=== PATIENT | female | born 2005 | race Caucasian/White ===

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

== ENCOUNTER 2024-02-04 21:53 | Emergency (ER) | payer OTHER, SELFPAY ==
[2024-02-04 22:10] VITALS: BP 125/80; PULSE 72; RESP 18; TEMP 36.7; O2SAT 99; BMI 21.0
--- NOTE | 2024-02-04 22:24 | ED_ITS ---
HPI - General Adult General Chief complaint: Abdominal Pain Stated complaint: Lower R abdominal pain Time Seen by Provider: 02/04/24 22:23 History of Present Illness HPI narrative: Pt c/o cramping right lower quadrant abdominal pain that started around 0800. Hx UTIs. Hx ovarian cysts for pt's mother . Pt states she does not have normal periods and last period lasted three weeks. Pt states she stopped taking her control and period stopped. 18-year-old young woman presenting to the emergency department with concern of cramping pelvic pain. Just stopped her control after 3 weeks straight menses. Has always been irregular. Not reporting headache or lightheadedness. Pain began rather suddenly this morning. No dysuria frequency urgency. No hematuria. No fever. No constipation or diarrhea. No nausea. Related Data Home Medications ?Medication ?Instructions ?Recorded ?Confirmed escitalopram oxalate 10 mg tablet 10 mg PO DAILY 02/04/24 02/06/24 escitalopram oxalate 5 mg tablet 5 mg PO DAILY 02/04/24 02/06/24 Allergies Allergy/AdvReac Type Severity Reaction Status Date / Time No Known Drug Allergies Allergy Verified 02/04/24 22:15 Review of Systems Status of ROS: Reports: 6 or more systems reviewed and unremarkable except as noted in History and below [facility] Medical History No significant past medical history Surgical History No significant past surgical history Social History Smoking Status: Current some day smoker Do you use any of these nicotine containing products: Vaping Products Second hand tobacco smoke exposure: No How often do you have a drink containing alcohol: 2-4 times a month AUDIT-C Alcohol total score: 2 Non-prescribed substance use: marijuana (any form) Exam Narrative: Exam Narrative: Pleasant. Calm. NAD. Breathing easily. Heart in regular rate and rhythm. Right lower adnexal pain to palpation. Not at McBurney's. No flank pain. No masses. exam not done otherwise. Const: Vital Signs, click to edit/add: Vital Signs - 24 hr 02/04/24 22:10 Temperature 98.0 F Pulse Rate [Pulse Oximeter] 72 Respiratory Rate 18 Blood Pressure [Ri ght Upper Arm] 125/80 Pulse Oximetry 99 Oxygen Delivery Me thod Room Air Documenting provider has reviewed patient's vital signs: yes Course Vital Signs Vital signs: Initial Vital Signs Temperature 98.0 F 02/04/24 22:10 Temperature Source Temporal Artery Scan 02/04/24 22:10 Pulse Rate 72 02/04/24 22:10 Respiratory Rate 18 02/04/24 22:10 Blood Pressure 125/80 02/04/24 22:10 Blood Pressure Mean 95 02/04/24 22:10 Blood Pressure Position Sitting 02/04/24 22:10 Pulse Oximetry 99 02/04/24 22:10 Oxygen Delivery Method Room Air 02/04/24 22:10 Vital Signs Temperature 98.0 F 02/04/24 22:10 Pulse Rate 72 02/04/24 22:10 Respiratory Rate 18 02/04/24 22:10 Blood Pressure 125/80 02/04/24 22:10 Pulse Oximetry 99 02/04/24 22:10 Oxygen Delivery Method Room Air 02/04/24 22:10 Temperature 98.0 F 02/04/24 23:56 Pulse Rate 68 02/04/24 23:56 Respiratory Rate 18 02/04/24 23:56 Blood Pressure 119/74 02/04/24 23:56 Pulse Oximetry 99 02/04/24 23:53 Oxygen Delivery Method Room Air 02/04/24 23:53 Medical Decision Making MDM Narrative Medical decision making narrative: We do have tray casting machine operator is available at this time. Would evaluate for urinary tract infection or potential /ectopic as well. We discussed other potential diagnoses like appendicitis. Would also consider a mesenteric adenitis. Considering abruptness of onset more likely related to ovarian matter. Vascular disruption unlikely in this age. Does not appear to be r elated to any injury in her back or injury otherwise. She does not feel she needs anything for pain. I discussed findings with tray casting machine operator. Noting a 5 cm cyst on the right ovary with small fluid. Radiology over-read as below TECHNIQUE: Ultrasound pelvis transvaginal for better assessment or to better visualize the endometrium. Real-time sonographic images with spectral and color Doppler imaging of the ovaries were obtained. COMPARISON: None. FINDINGS: Uterus: 7.7 x 4.5 x 5.1 cm. Normal echotexture of the myometrium. No masses. Endometrium: Transvaginal imaging was performed to better evaluate the endometrium. Endometrial thickness measures 6 mm. No sign of endometrial mass or fluid. Right ovary measures 6.0 x 4.8 x 5.6 cm and left ovary measures 2.7 x 2.2 x 2.4 cm. There is a 5.2 x 4.4 x 5.0 cm simple appearing cyst in the right ovary. Normal arterial and venous blood flow is demonstrated in both ovaries. Cul-de-sac: No significant free fluid. IMPRESSION: Large right ovarian simple appearing cyst. Otherwise, unremarkable pelvic ultrasound. Discussed findings with Neeta. I think a leaking cyst is a very reasonable exp lanation for her pain and consistent with clinical story. Urinalysis absent of apparent infection and test is negative. See patient discharge plan for further discussion/plan Lab Data Lab results reviewed: Yes I reviewed the patient's lab results Labs: Lab Results 02/04/24 Range/Units 22:15 Urine Color Yellow (Yellow) Urine Appearance Clear (Clear) Urine pH 7.0 (5.0-8.5) Ur Specific [place] 1.020 (1.000-1.030) Urine Protein Negative (Negative) Urine Glucose (UA) Negative (Negative) Urine Ketones Negative (Negative) Urine Blood Negative (Negative) Urine Nitrite Negative (Negative) Urine Bilirubin Negative (Negative) Urine Urobilinogen 0.2 (0.2-1.0) Ur Leukocyte Esterase Negative (Negative) Urine RBC 0-2 (0-2) Urine WBC 0-2 (0-5) Ur Squamous Epith Cells None (None-Few) Urine Bacteria None (None) Urine HCG, Qual Negative (Negative) Discharge Plan Discharge Clinical Impression: Cyst of right ovary Patient Disposition: Home w/ Parent or Adult Condition: Stable Additional Instructions: As noted preliminary impression is a leaking 5 cm right ovarian cyst. I suspect that this is what is causing your pain. Stay well-hydrated. Can take up to 800 mg of ibuprofen or up to 1000 mg of acetaminophen per dose. These can be combined. Alternative to the ibuprofen might be up to 500 mg naproxen 2 times daily. I understand that you follow-up at the end of the week in primary care clinic. Otherwise I would follow-up sometime between 4-6 weeks for repeat ultrasound to verify resolution of this cyst. Can discuss this at this follow-up visit; maybe get this arranged. Be seen/return for marked increase in persistent pain, associated vomiting or fever. Prescriptions: No Action escitalopram oxalate 10 mg tablet 10 mg PO DAILY escitalopram oxalate 5 mg tablet 5 mg PO DAILY Follow Up/Referrals: Hayde Hilton PA-C [Primary Care Provider] - Stand Alone Forms: [employer] Info Instructions
--- NOTE | 2024-02-04 22:39 | CRLHL7_ITS ---
For Patients: As a result of the Century Cures Act, medical imaging exams and procedure reports are released immediately into your electronic medical record. You may view this report before your referring provider. If you have questions, please contact your health care provider. INDICATION: right adnexal pain. TECHNIQUE: Ultrasound pelvis transvaginal for better assessment or to better visualize the endometrium. Real-time sonographic images with spectral and color Doppler imaging of the ovaries were obtained. COMPARISON: None. FINDINGS: Uterus: 7.7 x 4.5 x 5.1 cm. Normal echotexture of the myometrium. No masses. Endometrium: Transvaginal imaging was performed to better evaluate the endometrium. Endometrial thickness measures 6 mm. No sign of endometrial mass or fluid. Right ovary measures 6.0 x 4.8 x 5.6 cm and left ovary measures 2.7 x 2.2 x 2.4 cm. There is a 5.2 x 4.4 x 5.0 cm simple appearing cyst in the right ovary. Normal arterial and venous blood flow is demonstrated in both ovaries. Cul-de-sac: No significant free fluid. IMPRESSION: Large right ovarian simple appearing cyst. Otherwise, unremarkable pelvic ultrasound. Dictated by Jorge Omalley MD @ 02/05/2024 12:57:36 AM (Electronically Signed)
[2024-02-04 22:55] LABS: Appearance Urine Clear (Clear); Bilirubin Urine Negative (Negative); Blood Urine Negative (Negative); Color Urine Yellow (Yellow); Glucose Urine Negative (Negative); Ketones Urine Negative (Negative); Leukocyte Esterase Urine Negative (Negative); Nitrite Urine Negative (Negative); Protein Urine Negative (Negative); Urobilinogen Urine 0.2 (0.2-1.0)
[2024-02-04 23:03] LABS: RBC Urine 0-2 (0-2); WBC Urine 0-2 (0-5)
[2024-02-04 23:04] LABS: Ur HCG Qualitative* Negative (Negative)
[2024-02-04 23:53] VITALS: BP 119/74; PULSE 68; RESP 18; TEMP 36.7; O2SAT 99
[2024-02-04 23:56] VITALS: BP 119/74; PULSE 68; RESP 18; TEMP 36.7
== END 2024-02-04 23:56 | disposition home or self-care (01) ==
PROVIDERS: Emergency Provider Family Medicine; PCP Student in an Organized Health Care Education/Training Program
DX: N83.201 Unspecified ovarian cyst, right side (principal)
CPT/HCPCS: 76830; 81001; 81025; 93976; 99283; 99284

== ENCOUNTER 2024-02-06 09:28 | Emergency (ER) | payer OTHER, SELFPAY ==
[2024-02-06 09:32] VITALS: BP 148/71; PULSE 69; RESP 14; TEMP 36.7; O2SAT 100; BMI 21.0
[2024-02-06 10:01] LABS: Appearance Urine Clear (Clear); Bilirubin Urine Negative (Negative); Blood Urine Negative (Negative); Color Urine Yellow (Yellow); Glucose Urine Negative (Negative); Ketones Urine Negative (Negative); Leukocyte Esterase Urine Negative (Negative); Nitrite Urine Negative (Negative); Protein Urine Negative (Negative); Specific Gravity Urine >= 1.030 (1.000-1.030); Urobilinogen Urine 0.2 (0.2-1.0)
[2024-02-06 10:19] LABS: Bacteria Urine Few; RBC Urine 0-2 (0-2); Squamous Epithelial Cell Urine Few (None-Few); WBC Urine 0-2 (0-5)
[2024-02-06 10:20] LABS: Amorphous Sediment Urine Moderate
--- NOTE | 2024-02-06 10:26 | ED.ABDPAIN ---
HPI - Abdominal Pain General Time Seen by Provider: 10:26 Date Seen: 02/06/24 Chief Complaint: Abdominal Pain Stated Complaint: Lower R abdominal pain Time Seen by Provider: 02/06/24 10:23 Source: patient and RN notes reviewed Mode of arrival: ambulatory Limitations: no limitations History of Present Illness HPI narrative: This 18-year-old female is ambulatory into the ED with concern of increasing right lower quadrant pain with a recently diagnosed ovarian cyst. FINDINGS: Uterus: 7.7 x 4.5 x 5.1 cm. Normal echotexture of the myometrium. No masses. Endometrium: Transvaginal imaging was performed to better evaluate the endometrium. Endometrial thickness measures 6 mm. No sign of endometrial mass or fluid. Right ovary measures 6.0 x 4.8 x 5.6 cm and left ovary measures 2.7 x 2.2 x 2.4 cm. There is a 5.2 x 4.4 x 5.0 cm simple appearing cyst in the right ovary. Normal arterial and venous blood flow is demonstrated in both ovaries. Cul-de-sac: No significant free fluid. IMPRESSION: Large right ovarian simple appearing cyst. Otherwise, unremarkable pelvic ultrasound. This ultrasound report was from yesterday. Patient has been taking ibuprofen, took 600 mg this morning around 7:00 a.m.. She feels like the pain is worsening in her right lower quadrant. She has no nausea vomiting, is eating, stooling normal. She does feel like she is needing to make herself burp more. She felt clammy and her heart racing this morning. Vitals were normal on arrival here. She has not had a temperature. She is not on any control, no IUD or Nexplanon. Urinalysis and urine test were negative yesterday. MD elicited complaint: abdominal pain Pertinent past history: other (5.2 x 4.4 x 5.0 cm right ovarian cyst) Related Data Patient : No Home Medications ?Medication ?Instructions ?Recorded ?Confirmed escitalopram oxalate 10 mg tablet 10 mg PO DAILY 02/04/24 02/06/24 escitalopram oxalate 5 mg tablet 5 mg PO DAILY 02/04/24 02/06/24 Previous Rx's ?Medication ?Instructions ?Recorded ketorolac 10 mg tablet 10 mg PO Q6H PRN pain #20 tabs 02/06/24 Allergies Allergy/AdvReac Type Severity Reaction Status Date / Time No Known Drug Allergies Allergy Verified 02/04/24 22:15 Review of Systems Status of ROS Reports: 6 or more systems reviewed and unremarkable except as noted in History and below [facility] Medical History No significant past medical history Surgical History No significant past surgical history Social History Smoking Status: Current some day smoker Do you use any of these nicotine containing products: Vaping Products Second hand tobacco smoke exposure: No How often do you have a drink containing alcohol: 2-4 times a month AUDIT-C Alcohol total score: 2 Non-prescribed substance use: marijuana (any form) Exam Const: Vital Signs, click to edit/add: Vital Signs - 24 hr 02/06/24 09:32 Temperature 98.1 F Pulse Rate [Pulse Oximeter] 69 Respiratory Rate 14 Blood Pressure [Ri ght Upper Arm] 148/71 H Pulse Oximetry 100 Oxygen Delivery Me thod Room Air This 18-year-old female is alert, interactive, no apparent distress. Ambulatory into the ED of her own accord. Sclera clear, conjugate gaze. Did speak in complete sentences. Skin is warm and dry, not diaphoretic, no rash. Lungs are clear anteriorly. CV regular rate and rhythm no murmur. Abdomen is flat, nondistended. She does have some localized guarding in her right lower quadrant confounding ability to feel any mass. She has no abdominal tenderness elsewhere, no masses organomegaly elsewhere. Bimanual exam deferred at this time as patient will be having an ultrasound and would prefer not to have this examination at this time. Documenting provider has reviewed patient's vital signs: yes Course Course ED Course: Did discuss torsion, possibility cyst is going or just painful at this size an inadequate pain control with outpatient meds. Will place an IV, recheck basic labs, give her 15 mg IV Toradol. Repeat ultrasound. Reevaluation(s) Time of Reevaluation #1: 12:21 Reevaluation #1: Have reviewed the ultrasound report, did provide them a copy. She does not have torsion, still has good blood flow. No concerning change with labs. She did feel the IV Toradol did help. Will switch her from ibuprofen to oral Toradol initially, will supplement with Tylenol. Did discuss narcotics but she is reluctant even take any medicines ever. Vital Signs Vital signs: Initial Vital Signs Temperature 98.1 F 02/06/24 09:32 Temperature Source Temporal Artery Scan 02/06/24 09:32 Pulse Rate 69 02/06/24 09:32 Pulse Rhythm Regular 02/06/24 09:32 Respiratory Rate 14 02/06/24 09:32 Blood Pressure 148/71 H 02/06/24 09:32 Blood Pressure Mean 96 02/06/24 09:32 Blood Pressure Position Sitting 02/06/24 09:32 Pulse Oximetry 100 02/06/24 09:32 Oxygen Delivery Method Room Air 02/06/24 09:32 Vital Signs Temperature 98.1 F 02/06/24 09:32 Pulse Rate 69 02/06/24 09:32 Respiratory Rate 14 02/06/24 09:32 Blood Pressure 148/71 H 02/06/24 09:32 Pulse Oximetry 100 02/06/24 09:32 Oxygen Delivery Method Room Air 02/06/24 09:32 Temperature 98.1 F 02/06/24 09:32 Pulse Rate 69 02/06/24 09:32 Respiratory Rate 14 02/06/24 09:32 Blood Pressure 148/71 H 02/06/24 09:32 Pulse Oximetry 100 02/06/24 09:32 Oxygen Delivery Method Room Air 02/06/24 09:32 Medications Administered Medications: Discontinued Medications Generic Name Dose Route Start Last Admin Trade Name Freq PRN Reason Stop Dose Admin Ketorolac Tromethamine 15 mg 02/06/24 10:31 02/06/24 10:45 Ketorolac 15 Mg/Ml Inj IVP 02/06/24 10:32 15 mg ONCE ONE Administration MDM - Abdominal Pain Lab Data Attestation: I reviewed the patient's lab results. Labs: Lab Results 02/06/24 02/06/24 Range/Units 09:36 10:45 WBC 3.69 L (4.50-11.00) K/uL RBC 4.31 (4.00-5.20) m/uL Hgb 12.9 (12.0-16.0) gm/dL Hct 38.1 (33.0-51.0) % MCV 88 (80-100) fL MCH 30 (26-34) pg MCHC 34 (32-36) gm/dL RDW Coeff of Corine 11.7 (11.5-15.5) % Plt Count 188 (140-440) K/uL Neut % (Auto) 49.3 (42.0-72.0) % Lymph % (Auto) 39.3 (20-44) % [place] % (Auto) 9.5 (0.0-11.0) % Eos % (Auto) 1.4 (0.0-7.0) % Baso % (Auto) 0.5 (0.0-3.0) % Neut # (Auto) 1.80 (1.7-7.0) K/uL Lymph # (Auto) 1.50 (0.90-2.90) K/uL [place] # (Auto) 0.40 (0.00-0.90) K/UL Eos # (Auto) 0.10 (0.00-0.50) K/uL Baso # (Auto) 0.00 (0.00-0.30) K/uL Abs Immat Gran (auto) 0.00 (0.00-0.30) K/uL Imm/Tot Granulo (auto) 0.0 % Lactate 0.7 (0.5-1.9) mmol/L Urine Color Yellow (Yellow) Urine Appearance Clear (Clear) Urine pH 6.0 (5.0-8.5) Ur Specific [place] >= 1.030 (1.000-1.030) Urine Protein Negative (Negative) Urine Glucose (UA) Negative (Negative) Urine Ketones Negative (Negative) Urine Blood Negative (Negative) Urine Nitrite Negative (Negative) Urine Bilirubin Negative (Negative) Urine Urobilinogen 0.2 (0.2-1.0) Ur Leukocyte Esterase Negative (Negative) Urine RBC 0-2 (0-2) Urine WBC 0-2 (0-5) Ur Squamous Epith Cells Few (None-Few) Amorphous Sediment Moderate A (None) Urine Bacteria Few A (None) Imaging Data US pelvis: Attestation: I have reviewed the pertinent imaging results. Radiologist's impression: Patient: TA BURNS Facility:?[facility] Patient ID:?[id number] Site Patient ID:?[id number]. Site :?[id number] Study:?US-Pelvis PELVIS TV-02/06/2024 11:32:50 AM Ordering Physician:Morenita Casper Final Report: INDICATION: Worsening pain with known cyst on right ovary. TECHNIQUE: Ultrasound pelvis transvaginal for better assessment or to better visualize the endometrium. Real-time sonographic images with spectral and color doppler imaging of the ovaries were obtained. COMPARISON: 02/04/2024. FINDINGS: Uterus measures 8.7 x 4.4 x 5.3 cm. No discrete uterine mass. Endometrial stripe measures 4 mm. No endometrial fluid evident. Right ovary is 6.3 x 5.6 x 6.4 cm. A simple appearing cyst measures 5.8 x 5 x 6.1 cm and previously measured 5.2 x 4.4 x 5 cm. Normal-appearing color Doppler flow is present in the right ovary. Left ovary is 3.4 x 1.7 x 2.2 cm and is within normal limits. Normal-appearing color Doppler flow in the left ovary. Small amount of pelvic free fluid is similar in appearance. IMPRESSION: 1. Simple appearing right ovarian cyst measuring up to 6.1 cm has slightly increased in size. Ultrasound follow-up in 8-12 weeks is recommended for further evaluation. 2. Small amount of pelvic free fluid is similar. Dictated by Yemi Ortega MD @ 02/06/2024 12:10:04 PM Dictated by: Yemi Ortega MD @ 02/06/2024 12:10:32 (Electronic Signature) Discharge Plan Discharge Clinical Impression: Cyst of right ovary Patient Disposition: Home, Self-Care Condition: Stable Instructions: Ovarian Cyst (ED) Additional Instructions: Start Toradol per prescription for pain for the next 5 days. After the Toradol, can go back to ibuprofen but do not use ibuprofen and Toradol together. Can supplement with Tylenol with both of these as needed for extra pain management, can take a 1000 mg up to 3 times a day. Need a follow-up pelvic ultrasound done in 6-8 weeks just to ensure resolution of the ovarian cyst, can schedule this through your primary clinic. Otherwise, if you have increasing pain, developed severe abdominal pain and have fever or vomiting with this, do need to be re-evaluated. Activity Level: Activity as Tolerated Discharge Diet: Regular Prescriptions: New ketorolac 10 mg tablet 10 mg PO Q6H PRN (Reason: pain) Qty: 20 0RF Rx Instructions: maximum total duration of 5 days from all oral, intranasal, or parenteral formulations No Action escitalopram oxalate 10 mg tablet 10 mg PO DAILY escitalopram oxalate 5 mg tablet 5 mg PO DAILY Follow Up/Referrals: Hayde Hilton PA-C [Primary Care Provider] - Stand Alone Forms: [facility] Info Inst[facility]
--- NOTE | 2024-02-06 10:43 | CRLHL7_ITS ---
For Patients: As a result of the Century Cures Act, medical imaging exams and procedure reports are released immediately into your electronic medical record. You may view this report before your referring provider. If you have questions, please contact your health care provider. INDICATION: Worsening pain with known cyst on right ovary. TECHNIQUE: Ultrasound pelvis transvaginal for better assessment or to better visualize the endometrium. Real-time sonographic images with spectral and color doppler imaging of the ovaries were obtained. COMPARISON: 02/04/2024. FINDINGS: Uterus measures 8.7 x 4.4 x 5.3 cm. No discrete uterine mass. Endometrial stripe measures 4 mm. No endometrial fluid evident. Right ovary is 6.3 x 5.6 x 6.4 cm. A simple appearing cyst measures 5.8 x 5 x 6.1 cm and previously measured 5.2 x 4.4 x 5 cm. Normal-appearing color Doppler flow is present in the right ovary. Left ovary is 3.4 x 1.7 x 2.2 cm and is within normal limits. Normal-appearing color Doppler flow in the left ovary. Small amount of pelvic free fluid is similar in appearance. IMPRESSION: 1. Simple appearing right ovarian cyst measuring up to 6.1 cm has slightly increased in size. Ultrasound follow-up in 8-12 weeks is recommended for further evaluation. 2. Small amount of pelvic free fluid is similar. Dictated by Yemi Ortega MD @ 02/06/2024 12:10:04 PM Dictated by: Yemi Ortega MD @ 02/06/2024 12:10:32 (Electronically Signed)
[2024-02-06] MEDS: KETOROLAC 15 MG/ML inj IVP (10:45)
[2024-02-06 10:50] LABS: Lactate* 0.7 mmol/L (0.5-1.9)
[2024-02-06 10:57] LABS: Basophils Percent Auto 0.5 % (0.0-3.0); Eosinophils Percent Auto 1.4 % (0.0-7.0); Hematocrit 38.1 % (33.0-51.0); Hemoglobin* 12.9 gm/dL (12.0-16.0); Lymphocytes Percent Auto 39.3 % (20-44); Mean Corpuscular HGB Conc 34 gm/dL (32-36); Mean Corpuscular Hemoglobin 30 pg (26-34); Mean Corpuscular Volume 88 fL (80-100); Monocytes Percent Auto 9.5 % (0.0-11.0); Neutrophils Percent Auto 49.3 % (42.0-72.0); Platelet Count* 188 K/uL (140-440); RDW Coefficient of Variation % 11.7 % (11.5-15.5); Red Blood Count 4.31 m/uL (4.00-5.20); White Blood Count* 3.69 K/uL (4.50-11.00)
[2024-02-06 11:08] LABS: Slide Review Reflex No
[2024-02-06 11:30] VITALS: PULSE 62; O2SAT 96
[2024-02-06 11:48] VITALS: BP 113/64; PULSE 56; RESP 14; O2SAT 100
[2024-02-06 12:02] VITALS: BP 115/70; PULSE 77; RESP 12; O2SAT 95
== END 2024-02-06 12:38 | disposition home or self-care (01) ==
PROVIDERS: Emergency Provider Family Medicine; PCP Student in an Organized Health Care Education/Training Program
DX: N83.201 Unspecified ovarian cyst, right side (principal)
CPT/HCPCS: 36415; 76830; 81001; 83605; 85025; 87086; 93976; 96374; 99284; J1885

== ENCOUNTER 2025-04-11 10:46 | Emergency (ER) | payer OTHER, SELFPAY ==
--- OUTSIDE RECORDS SUMMARY | 2025-04-11 10:48 | XMS_ITS | Clinical Summary ---
Author Organization [facility] Address [address] [place] [id number] Care Team Providers Care Registered Nurse Maternity Name Role Phone Hayde Hilton Primary Care Provider [phone] Allergies No known active allergies Medications escitalopram oxalate 20 mg tabletIndication s:Anxiety TAKE 1 TABLET(20 MG) BY MOUTH AT BEDTIME 90 Tablet 03/21/20 25 Active cholecalciferol (Vitamin D) 1,000 unit tablet 12/15/19 25 Active ferrous gluconate 324 mg (37 mg iron) tabletIndication s:Iron deficiency anemia, unspecified iron deficiency anemia type Take 1 Tablet by mouth once daily with a meal. 90 Tablet 04/06/20 25 Active escitalopram oxalate (LEXAPRO) 20 mg tabletIndication s:Anxiety Take 1 Tablet (20 mg) by mouth at bedtime. 90 Tablet 1 07/16/20 24 025 Discontinued clindamycin phos 1%-benzoyl perox 5% gelIndications:A cne, unspecified acne type Apply topically to affected area(s) two times daily. 50 g 3 08/02/20 24 025 Discontinued(* Med complete/Regim en complete/Level of care change) norgestimate-eth inyl estradiol, 0.25-35 mg-mcg, (Estarylla) 0.25-35 mg-mcg tabletIndication s:Evaluation regarding contraception options Take 1 Tablet by mouth once daily. 84 Tablet 1 09/02/20 24 025 Discontinued(* Med complete/Regim en complete/Level of care change) hydrocortisone 2.5 % rectal creamIndications :Hemorrhoids, external Apply topically to affected area(s) two times daily. 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 [place] heart rate speed up. Discuss low iron levels. B-12 and vitamin D. ) 04/05/2025 Travel 04/05/2025 Nurse Triage [facility] [address] [place] [address] Hayde Hilton PA Dizziness 03/20/2025 Refill [facility] [address] [place] [address] Tomeka Higgins PA Refill Request (Escitalopram Oxalate) 03/10/2025 1:35 PM CDT Office Visit [facility] [address] [place] [address] Hayde Hilton PA Concerns (Hemorrhoids. Red, and irritating. Slight bleeding. ) 03/10/2025 Travel from Last 3 Months Immunizations Immunization Administration Dates Next Due DTaP 06/05/2017, 7,04/22/2005,02/06,2004 DTaP-IPV (Kinrix) 04/25/2010 Hepatitis A (Peds) 06/09/2020 Hepatitis B (Peds) 04/22/2005,2004, 005 Hib Conjugate, Unspecified 09/27/2005,,02/06/2005,11/22 Inactivated Polio Vaccine 04/22/2005,02/06/2005, 2004 Influenza, IIV3 (Age >=3 years) 07/06/2014,08/04,2012 Influenza, IIV4 06/09/2020 MENINGOCOCCAL VACCINE 2 VIAL 2MO-55YO (MENVEO) 11/01/2020 MMR 04/25/2010,09/27/2005 Meningococcal Vaccine (Menactra) 06/05/2017 Pneumococcal conj 7-Valent (Prevnar 7) 0 09/27/2005,04/22/2005,02/06/2005,11/22 Tdap 06/05/2017 Varicella Vaccine 07/27/2010,04/25/2010 Family History Medical History Relation Name Comments ADD / ADHD Mother Relation Name Status Comments Father Alive Maternal Grandfather Alive Maternal Grandmother Alive Mother Alive Paternal Grandfather Paternal Grandmother Alive Social History Tobacco Use Types Packs/Day Years Used Date Smoking Tobacco: Never Passive Smoke Exposure: Yes Smokeless Tobacco: Never Tobacco Cessation:Counseling Given: Yes Alcohol Use Standard Drinks/Week Comments Yes 3 (1 standard drink = 0.6 oz pur e alcohol) PHQ-2 Answer Date Recorded PHQ-2 TOTAL SCORE 3 07/16/2024 Social Connections Answer Date Recorded Do you often feel lonely or isolated from those around you? 0 03/10/2025 Alcohol Use Answer Date Recorded How often do you have a drink containing alcohol ? 3 08/02/2024 How many drinks containing a lcohol do you have on a typical day when you are drinking? 1 08/02/2024 How often do you have five or more drinks on one occasion? 3 08/02/2024 Financial Resource Strain Answer Date R ecorded Difficulty of Paying Living Expenses 3 03/10/2025 Difficulty of Paying Living Expenses Not on file 03/10/2025 Food Insecurity Answer Date Recorded Do you worry your food will run out before you are able to buy more? 1 03/10/2025 Transportation Needs Answer Date Record ed Does lack of transportation keep you from medica l appointments? 1 03/10/2025 Does lack of transportation keep you from work, meetings or getting things that you need? 1 03/10/2025 Housing Stability Answer Date Recorded What is your housing situation today? 1 03/10/2025 Utilities Answer Date Recorded Do you have trouble paying f or utilities (for example, heat, electricity, water, phone)? 1 03/10/2025 Comments No Sex and Gender Information Value Date Recorded Sex Assigned at Not on file Legal Sex Female 11:55 AM LAY OUT MAKER Gender Identity Not on file Sexual Orientation Not on file Obstetrics History Para Term AB IAB SAB Ectopic Multiple Livin g Live Births 0 0 0 0 0 0 0 0 0 0 0 Last Filed Vital Signs Vital Sign Reading Time Taken Comments Blood Pressure 112/68 04/05/2025 2:31 PM CDT Pulse 79 04/05/2025 2:31 PM CDT Temperature 37.1 C (98.7 F) 10/07/2024 12:38 PM LAY OUT MAKER Respiratory Rate 16 10/07/2024 12:38 PM LAY OUT MAKER Oxygen Saturation 99% 04/05/2025 2:31 PM CDT Inhaled Oxygen Concentration - - Weight 66.2 kg (146 lb) 04/05/2025 2:31 PM CDT Height 166.8 cm (5' 5.67) 08/02/2024 3:24 PM CS T Body Mass Index - - Plan of Treatment Health Maintenance Due Date Last Done Comments COVID-19 vaccine series (#1) 2009 HIV for age 15-65 2019 HPV series for age 9-26 (1 - 3-dose series) 2019 Well Child Check for age 3-20 08/28/2022 08/28/2021, 06/09/2020 Hepatitis C screening for ag e 18-79 2022 Pneumococcal series for age 6-49 (1 of 2 - PCV) 2023 09/27/2005, 04/22/2005, 02/06/2005, Additional history exists Influenza Vaccine (#1) 2025 0, 07/06/2014, 08/04/2013, Additional history exists Depression screening for age 12+ 07/16/2025 07/16/2024, 12/25/2023, 08/27/2023, Additional history exists BMI (ht and wt on same day) for age 18+ 08/02/2025 08/02/2024, 08/05/2023, 04/30/2023, Additional history exists Chlamydia for age 16-24 08/02/2025 08/02/20 24, 08/08/2023, 08/05/2023, Additional history exists Tetanus booster 06/05/2027 06/05/2017 Hepatitis B series for 19+ Completed 04/22, 2004, 2004 Meningococcal series for age 11-21 Completed 2020, 06/05/2017 Procedures Procedure Name Priority Date/Time Associated Diagnosis Comments CBC WITH AUTO DIFFERENTIAL Routine 04/05/2025 3:28 PM CDT Iron deficiency anemia, unspecified iron deficiency anemia type Postural lightheadedness IRON PLUS IRON BINDING CAP Routine 04/05/2025 3:28 PM CDT Iron deficiency anemia, unspecified iron deficiency anemia type Postural lightheadedness FERRITIN Routine 04/05/2025 3:28 PM CDT Iron deficiency anemia, unspecified iron deficiency anemia type Postural lightheadedness VITAMIN D 25 (DEFICIENCY) Routine 04/05/2025 3:28 PM CDT Vitamin D deficiency Iron deficiency anemia, unspecified iron deficiency anemia type VITAMIN B12 Routine 04/05/2025 3:28 PM CDT Family history of B12 deficiency GC CHLAMYDIA TRACH PROBE Routine 08/02/2024 4:00 PM LAY OUT MAKER Screening examination for STI from Last 3 Months or Most Recently Relevant to Health Maintenance Results * VITAMIN D 25 (DEFICIENCY) (04/05/2025 3:28 PM CDT) VITAMIN D,25-OH,TOTAL,IA 53 30 - 100 ng/mL [facility] Comment: Vitamin D Status 25-OH Vitamin D: Deficiency: <20 ng/mL Insufficiency: 20 - 29 ng/mL Optimal: > or = 30 ng/mL For 25-OH Vitamin D testing on patients on D2-supplementation and patients for whom quantitation of D2 and D3 fractions is required, the [facility](TM) 25-OH VIT D, (D2,D3), LC/MS/MS is recommended: order code 70514 (patients >2yrs). See Note 1 Note 1 For additional information, please refer to http://education.GlobeIn/faq/LWR805 (This link is being provided for informational/ educational purposes only.) Blood BLOOD SPECIMEN / Unknown 04/05/2025 3:28 PM CDT 04/05/2025 3:28 PM CDT us Hayde ESPARZA SEND OUTS Final Res ult Performing Organization Address City/[facility]/ZIP Co de Phone Number [employer] [facility] [address] [place] [address], [place] [phone] [facility] [address] [place] [address] * (ABNORMAL) IRON PLUS IRON BINDING CAP (04/05/2025 3:28 PM CDT) Pathologist [facility] IRON, TOTAL 26(L) 40 - 190 mcg/dL [facility] IRON BINDING CAPACITY 404 250 - 450 mcg/dL (calc) [facility] % SATURATION 6(L) 16 - 45 % (calc) [facility] Blood BLOOD SPECIMEN / Unknown 04/05/2025 3:28 PM CDT 04/05/2025 3:28 PM CDT us Hayde ESPARZA CHEMISTRY Final Res ult Performing Organization Address [facility]/ZIP Co de Phone Number [employer] [facility] [address] [place] [address], [place] [phone] [facility] [address] [place] [address] * (ABNORMAL) CBC AND DIFFERENTIAL (04/05/2025 3:28 PM CDT) [facility] WHITE BLOOD CELL COUNT 5.4 3.8 - 10.8 Thousand/u L [facility] RED BLOOD CELL COUNT 4.67 3.80 - 5.10 Million/uL [facility] HEMOGLOBIN 12.7 11.7 - 15.5 g/dL [facility] HEMATOCRIT 40.9 35.0 - 45.0 % [facility] MCV 87.6 80.0 - 100.0 fL [facility] MCH 27.2 27.0 - 33.0 pg [facility] MCHC 31.1(L) 32.0 - 36.0 g/dL [facility] Comment: For adults, a slight decrease in the calculated MCHC value (in the range of 30 to 32 g/dL) is most likely not clinically significant; however, it should be interpreted with caution in correlation with other red cell parameters and the patient's clinical condition. RDW 13.4 11.0 - 15.0 % [facility] PLATELET COUNT 231 140 - 400 Thousand/u L [facility] MPV 10.7 7.5 - 12.5 fL [facility] ABSOLUTE NEUTROPHILS 3,143 1,500 - 7,800 cells/uL [facility] ABSOLUTE LYMPHOCYTES 1,598 850 - 3,900 cells/uL [facility] ABSOLUTE MONOCYTES 535 200 - 950 cells/uL [facility] ABSOLUTE EOSINOPHILS 92 15 - 500 cells/uL [facility] ABSOLUTE BASOPHILS 32 0 - 200 cells/uL [facility] NEUTROPHILS 58.2 % [facility] LYMPHOCYTES 29.6 % [facility] MONOCYTES 9.9 % [facility] EOSINOPHILS 1.7 % [facility] BASOPHILS 0.6 % [facility] Blood BLOOD SPECIMEN / Unknown 04/05/2025 3:28 PM CDT 04/05/2025 3:28 PM CDT us Hayde ESPARZA HEMATOLOGY Final Res ult Performing Organization Address City/[facility]/ZIP Co de Phone Number [facility] [address] [place] [phone], [facility] [address] [place] [address] * (ABNORMAL) FERRITIN (04/05/2025 3:28 PM CDT) Pathologist [facility] FERRITIN 7(L) 16 - 154 ng/mL [facility] Blood BLOOD SPECIMEN / Unknown 04/05/2025 3:28 PM CDT 04/05/2025 3:28 PM CDT us Hayde ESPARZA CHEMISTRY Final Res ult Performing Organization Address [facility] Co de Phone Number [facility] [address] [address], [facility] [address] [place] [address] * VITAMIN B12 (04/05/2025 3:28 PM CDT) Pathologist [facility] VITAMIN B12 377 200 - 1,100 pg/mL [facility] Comment: Please Note: Although the reference range for vitamin B12 is 200-1100 pg/mL, it has been reported that between 5 and 10% of patients with values between 200 and 400 pg/mL may experience neuropsychiatric and hematologic abnormalities due to occult B12 deficiency; less than 1% of patients with values above 400 pg/mL will have symptoms. Blood BLOOD SPECIMEN / Unknown 04/05/2025 3:28 PM CDT 04/05/2025 3:28 PM CDT us Hayde ESPARZA CHEMISTRY Final Res ult [facility] [address] [place] [address], [facility] [address] [place] [address] * GC CHLAMYDIA TRACH PROBE (08/02/2024 4:00 PM LAY OUT MAKER) CHLAMYDIA PROBE Negative 3:22 AM LAY OUT MAKER [facility] N GONORRHOEAE PROBE Negative 08/03/2024 3:22 AM LAY OUT MAKER [facility] Other URINE SPECIMEN / Unknown Non-Blood / Unknown 08/02/2024 4:00 PM LAY OUT MAKER 08/02/2024 4:00 PM LAY OUT MAKER Fidelina Berry MD MICROBIOLOGY Fin al Result [facility] [address] [place] [address], from Last 3 Months or Most Recently Relevant to Health Maintenance Insurance [id number] [place] [address] [place] [id number] [place] [id number] [facility] [place] [id number] Care Teams Registered Nurse Maternity Relationship Specialty Start Date End Date Hayde Hilton PA [address] [place] [address] PCP - General Physician Database Software Technician 07/23/22
[2025-04-11 10:59] VITALS: BP 124/73; PULSE 72; RESP 16; TEMP 36.3; O2SAT 100; BMI 23.4
[2025-04-11 11:06] VITALS: BP 124/73; BP 126/72; PULSE 72; PULSE 81
[2025-04-11 12:41] LABS: Hematocrit 38.3 % (33.0-51.0); Hemoglobin* 12.6 gm/dL (12.0-16.0); Immature Granulocytes Abs Auto 0.00 K/uL (0.00-0.30); Immature Granulocytes Pct Auto 0.0 %; Mean Corpuscular HGB Conc 33 gm/dL (32-36); Mean Corpuscular Hemoglobin 28 pg (26-34); Mean Corpuscular Volume 84 fL (80-100); RDW Coefficient of Variation % 13.5 % (11.5-15.5); Red Blood Count 4.55 m/uL (4.00-5.20); White Blood Count* 3.57 K/uL (4.50-11.00)
[2025-04-11 12:43] LABS: Lymphocytes Absolute Auto 0.70 K/uL (0.90-2.90); Slide Review Reflex No
[2025-04-11 12:46] LABS: Albumin* 4.4 g/dL (3.3-5.0); Chloride* 104 mmol/L (96-114); Potassium* 3.8 mmol/L (3.6-5.1); Sodium* 136 mmol/L (135-149)
[2025-04-11 12:49] LABS: Alanine Aminotransferase* 18 U/L (4-35); Alkaline Phosphatase* 68 U/L (40-150); Anion Gap 7 mEq/L (7-15); Aspartate Amino Transferase* 27 U/L (12-35); Bilirubin Direct* 0.0 mg/dL (0.0-0.5); Bilirubin Total* 0.5 mg/dL (0.1-1.5); Blood Urea Nitrogen* 12 mg/dL (5-24); Carbon Dioxide* 25 mmol/L (20-32); Creatinine* 0.7 mg/dL (0.5-1.5); Est. Creatinine Clearance* 120.01; Estimated Glomerular Filt Rate 127 ml/min; Total Protein* 6.8 g/dL (6.0-8.3)
[2025-04-11 12:50] LABS: Calcium* 9.1 mg/dL (8.4-10.6); Glucose* 90 mg/dL (60-115)
--- NOTE | 2025-04-11 12:54 | ED.GENADULT ---
HPI - General Adult General Chief complaint: Nausea/Vomiting Stated complaint: low iron Time Seen by Provider: 04/11/25 11:53 Source: patient and family Mode of arrival: ambulatory Limitations: no limitations History of Present Illness HPI narrative: 19-year-old female presenting today feeling lightheaded. Patient states that she was seen in the clinic last week and told that her iron levels were 7, she was started on oral iron replacement. She states that on 2 occasions in the last week she had to leave work because she felt lightheaded. She denies syncope. She denies falling or hitting her head. She denies shortness of breath or chest pain. She does have a mild headache. Patient states that she does have heavy periods, sometimes soaking pad per hour, this does not happen every time. She has been on control in the past which did not seem to help. She states that she feels most lightheaded when she goes from a sitting to a standing position. Sometimes feels slightly nauseated, not nauseated now. Denies vomiting. No fevers or chills. No abdominal discomfort. No urinary symptoms, had 1 episode of loose stools yesterday. Related Data Home Medications ?Medication ?Instructions ?Recorded ?Confirmed escitalopram oxalate 20 mg tablet 20 mg PO DAILY 04/11/25 04/11/25 ferrous gluconate 324 mg (38 mg 324 mg PO DAILY 04/11/25 04/11/25 iron) tablet Allergies Allergy/AdvReac Type Severity Reaction Status Date / Time No Known Drug Allergies Allergy Verified 02/04/24 22:15 Review of Systems Status of ROS: Reports: 10 or more systems reviewed and unremarkable except as noted in History and below [facility] Medical History No significant past medical history Surgical History No significant past surgical history Social History Smoking Status: Current some day smoker Do you use any of these nicotine containing products: Vaping Products Second hand tobacco smoke exposure: No How often do you have a drink containing alcohol: 2-4 times a month AUDIT-C Alcohol total score: 2 Non-prescribed substance use: denies use Exam Narrative: Exam Narrative: Well-nourished well-developed patient in no acute distress. Alert and oriented. Answers questions appropriately. Mood and affect are appropriate. Thoughts are goal oriented and rational. No tangential or magical thinking noted. Patient speaks in full sentences without needing to catch her breath. HEENT: Normocephalic atraumatic. Pupils are equally round reactive to light. Extraocular muscles are intact. Conjunctivae are moist without any icterus noted. Moist mucous membranes. Posterior pharynx is normal. Cardiovascular: Heart is regular rate and rhythm S1 and S2 are present without any murmurs. Lungs: Clear to auscultation bilaterally no wheezes rhonchi or rales are appreciated. Patient takes deep breaths without any discomfort. Abdomen: Soft and nontender nondistended with normal bowel sounds. Extremities: Bilateral lower extremities are without edema. Normal DP and PT pulses. Skin: Well perfused without any obvious rashes. Const: Vital Signs, click to edit/add: Vital Signs - 24 hr 04/11/25 10:59 04/11/25 11:06 Temperature 97.4 F L Pulse Rate [Pulse Oximeter] 72 Pulse Rate [orthos tatic sitting] 72 Pulse Rate [orthos tatic standing] 81 Respiratory Rate 16 Blood Pressure [Ri t Upper Arm] 124/73 Blood Pressure [or thostatic sitting] 124/73 Blood Pressure [or thostatic standing ] 126/72 Pulse Oximetry 100 Oxygen Delivery Me thod Room Air Course Course ED Course: IV established and a L of normal saline ordered. Blood work unremarkable. EKG, read by me, shows normal sinus rhythm with a pulse is 66. Normal QRS, QTC and LA intervals. Vital Signs Vital signs: Initial Vital Signs Temperature 97.4 F L 04/11/25 10:59 Temperature Source Temporal Artery Scan 04/11/25 10:59 Pulse Rate 72 04/11/25 10:59 Respiratory Rate 16 04/11/25 10:59 Blood Pressure 124/73 04/11/25 10:59 Blood Pressure Mean 90 04/11/25 10:59 Blood Pressure Position Sitting 04/11/25 10:59 Pulse Oximetry 100 04/11/25 10:59 Oxygen Delivery Method Room Air 04/11/25 10:59 Vital Signs Temperature 97.4 F L 04/11/25 10:59 Pulse Rate 72 04/11/25 10:59 Respiratory Rate 16 04/11/25 10:59 Blood Pressure 124/73 04/11/25 10:59 Pulse Oximetry 100 04/11/25 10:59 Oxygen Delivery Method Room Air 04/11/25 10:59 Temperature 97.4 F L 04/11/25 10:59 Pulse Rate 72 04/11/25 11:06 Respiratory Rate 16 04/11/25 10:59 Blood Pressure 124/73 04/11/25 11:06 Pulse Oximetry 100 04/11/25 10:59 Oxygen Delivery Method Room Air 04/11/25 10:59 Medications Administered Medications: Generic Name Dose Route Start Last Admin Trade Name Freq PRN Reason Stop Dose Admin Sodium Chloride 1,000 mls @ 1,000 mls/hr 04/11/25 12:30 04/11/25 12:42 0.9 % Sodium Chloride 1000 Ml IV 04/11/25 13:29 1,000 mls/hr .Q1H YOGESH Administration Medical Decision Making MDM Narrative Medical decision making narrative: 19-year-old female feeling lightheaded. We discussed her workup was unremarkable. We discussed potential side effects from Lexapro, mild dehydration perhaps causing her symptoms. We discussed that there was no obvious life-threatening cause to her symptoms today: no evidence of arrhythmias, no evidence of infection, electrolyte abnormalities. Recommend follow-up with primary care. Lab Data Lab results reviewed: Yes I reviewed the patient's lab results Labs: Lab Results 04/11/25 04/11/25 Range/Units 12:25 12:47 WBC 3.57 L (4.50-11.00) K/uL RBC 4.55 (4.00-5.20) m/uL Hgb 12.6 (12.0-16.0) gm/dL Hct 38.3 (33.0-51.0) % MCV 84 (80-100) fL MCH 28 (26-34) pg MCHC 33 (32-36) gm/dL RDW Coeff of Corine 13.5 (11.5-15.5) % Plt Count 208 (140-440) K/uL Neut % (Auto) 68.0 (42.0-72.0) % Lymph % (Auto) 20.2 (20-44) % Mcdonald % (Auto) 10.4 (0.0-11.0) % Eos % (Auto) 1.1 (0.0-7.0) % Baso % (Auto) 0.3 (0.0-3.0) % Neut # (Auto) 2.40 (1.7-7.0) K/uL Lymph # (Auto) 0.70 L (0.90-2.90) K/uL Mcdonald # (Auto) 0.40 (0.00-0.90) K/UL Eos # (Auto) 0.00 (0.00-0.50) K/uL Baso # (Auto) 0.00 (0.00-0.30) K/uL Abs Immat Gran (auto) 0.00 (0.00-0.30) K/uL Imm/Tot Granulo (auto) 0.0 % Sodium 136 (135-149) mmol/L Potassium 3.8 (3.6-5.1) mmol/L Chloride 104 (96-114) mmol/L Carbon Dioxide 25 (20-32) mmol/L Anion Gap 7 (7-15) mEq/L BUN 12 (5-24) mg/dL Creatinine 0.7 (0.5-1.5) mg/dL Estimated Creat Clear 120.01 Estimated GFR 127 ml/min Glucose 90 (60-115) mg/dL Calcium 9.1 (8.4-10.6) mg/dL Total Bilirubin 0.5 (0.1-1.5) mg/dL Direct Bilirubin 0.0 (0.0-0.5) mg/dL AST 27 (12-35) U/L ALT 18 (4-35) U/L Alkaline Phosphatase 68 (40-150) U/L Total Protein 6.8 (6.0-8.3) g/dL Albumin 4.4 (3.3-5.0) g/dL Urine HCG, Qual Negative (Negative) ECG Data Attestation: I personally reviewed and interpreted this ECG as follows: Discharge Plan Discharge Clinical Impression: Episodic lightheadedness Patient Disposition: Home w/ Parent or Adult Condition: Stable Instructions: Lightheadedness (ED) Additional Instructions: You should follow-up with your primary care provider this week. Prescriptions: No Action escitalopram oxalate 20 mg tablet 20 mg PO DAILY ferrous gluconate 324 mg (38 mg iron) tablet 324 mg PO DAILY Follow Up/Referrals: Malecha,Hayde M, PA-C [Primary Care Provider, Family Practice] Stand Alone Forms: MyHealth Info Instructions
[2025-04-11 12:58] LABS: Ur HCG Qualitative* Negative (Negative)
== END 2025-04-11 13:34 | disposition home or self-care (01) ==
PROVIDERS: Emergency Provider Family Medicine; PCP Student in an Organized Health Care Education/Training Program
DX: R42 Dizziness and giddiness (principal)
CPT/HCPCS: 36415; 80048; 80076; 81025; 85025; 93005; 99284; J7030